=== PATIENT | male | born 1940 | race Caucasian/White ===

== ENCOUNTER 2021-02-11 06:58 | Day surgery (SDC) | payer MEDICARE, OTHER ==
[~2021-02-11 06:58] MED LIST: Lactated Ringers 1,000 ML IV SCH; Lidocaine 1%/Sod Bicarbonate in NS 8.4% 1 ML Syringe IDERM PRN; Sodium Chloride 0.9% 10 ML Syringe FLUSH PRN
--- NOTE | 2021-02-11 07:35 | PCM.PREANE ---
Preanesthetic Assessment - Procedure Proposed Procedure: EGD - Anesthesia/Transfusion/Family Hx Anesthesia History: Prior Anesthesia Without Reaction - Review of Systems General: No Symptoms Pulmonary: No Symptoms Cardiovascular: No Symptoms Gastrointestinal: No Symptoms Neurological: No Symptoms Other: Reports: None - Physical Assessment NPO Status Date: 02/10/21 NPO Status Time: 20:00 Vital Signs: 145/82 58 16 99% RA 97.6 F ASA Class: 2 Mental Status: Alert & Oriented x3 Dentition: Reports: Normal Dentition (age appropriate, ), [place](s[place] Thyro-Mental Finger Breadths: 3 Mouth Opening Finger Breadths: 3 ROM/Head Extension: Full Lungs: Clear to Auscultation, Normal Respiratory Effort Cardiovascular: Regular Rate, Regular Rhythm - Allergies Allergies/Adverse Reactions: Allergies Allergy/AdvReac Type Severity Reaction Status Date / Time codeine Allergy Hallucinati Verified 02/10/21 16:45 ons - Acknowledgements Anesthesia Type Planned: MAC Pt an Appropriate Candidate for the Planned Anesthesia: Yes Alternatives and Risks of Anesthesia Discussed w Pt/Guardian: Yes Pt/Guardian Understands and Agrees with Anesthesia Plan: Yes PreAnesthesia Questionnaire HEENT History: Reports: Impaired Vision, Other (See Below) Other HEENT History: wears glasses Cardiovascular History: Reports: Hypertension Respiratory History: Reports: None Gastrointestinal History: Reports: Other (See Below) Other Gastrointestinal History: trouble swallowing Genitourinary History: Reports: UTI, Recurrent [employer] History: Reports: None Musculoskeletal History: Reports: None Neurological History: Reports: None Psychiatric History: Reports: None Endocrine/Metabolic History: Reports: Vitamin D Deficiency Hematologic History: Reports: None Immunologic History: Reports: None Oncologic (Cancer) History: Reports: Prostate Dermatologic History: Reports: Other (See Below) Other Dermatologic History: actinic keratosis, changing skin lesion - Past Surgical History Head Surgeries/Procedures: Reports: None HEENT Surgical History: Reports: Laser Surgery Cardiovascular Surgical History: Reports: None Respiratory Surgical History: Reports: None GI Surgical History: Reports: Colonoscopy, Other (See Below) Other GI Surgeries/Procedures: partial colectomy Female Surgical History: Reports: None Male Surgical History: Reports: None Endocrine Surgical History: Reports: None Neurological Surgical History: Reports: None Musculoskeletal Surgical History: Reports: None Oncologic Surgical History: Reports: None Dermatological Surgical History: Reports: None - SUBSTANCE USE Tobacco Use Status *Q: Former Tobacco User Recreational Drug Use History: No - HOME MEDS Home Medications: Home Meds Aspirin 81 mg PO DAILY 02/10/21 [History] Cholecalciferol (Vitamin D3) [Vitamin D3] 1,000 unit PO DAILY 02/10/21 [History] Doxazosin Mesylate [Cardura] 8 mg PO DAILY 02/10/21 [History] Glucosamine Sulfate Dipot Chlr [Glucosamine] 1,000 mg PO DAILY 02/10/21 [History] Lactobacillus Combo No.10 [Probiotic] 1 cap PO DAILY 02/10/21 [History] lisinopriL [Lisinopril] 20 mg PO DAILY 02/10/21 [History] - CURRENT (IN HOUSE) MEDS Current Meds: Current Medications Lactated Ringer's (Ringers, Lactated) 1,000 mls @ 125 mls/hr IV ASDIRECTED CHRISTIANO Stop: 02/11/21 23:00 Lidocaine/Sodium Bicarbonate (Lidocaine 1%/Sod Bicarbonate In Ns 8.4% 1 Ml Syringe) 0.25 ml IDERM ONETIME PRN PRN Reason: Prior to IV Start Stop: 02/11/21 18:00 Sodium Chloride (Sodium Chloride 0.9% 10 Ml Syringe) 10 ml FLUSH ASDIRECTED PRN PRN Reason: Keep Vein Open Stop: 02/11/21 18:00
[2021-02-11] MEDS ORDERED: Propofol 200 MG/20 ML SDV ONE (07:44)
[2021-02-11] MEDS ORDERED: Lidocaine 1% 4 ML ONE (07:44)
--- NOTE | 2021-02-11 08:23 | PCM48HPAN ---
Post Anesthesia Note - EVALUATION WITHIN 48HRS OF ANESTHETIC Vital Signs in Normal Range: Yes Patient Participated in Evaluation: Yes Respiratory Function Stable: Yes Airway Patent: Yes Cardiovascular Function Stable: Yes Hydration Status Stable: Yes Pain Control Satisfactory: Yes Nausea and Vomiting Control Satisfactory: Yes Mental Status Recovered: Yes Vital Signs: Last Vital Signs Temp 98.3 F 02/11/21 08:14 Pulse 53 L 02/11/21 08:14 Resp 16 02/11/21 08:14 BP 105/63 02/11/21 08:14 Pulse Ox 98 02/11/21 08:14
--- NOTE | 2021-02-11 08:58 | PCM.PRNOTE ---
- Free Text/Narrative Note: Date: 02/11/2021 Procedure: diagnostic esophagogastroduodenoscopy Indication: chronic dysphagia Endoscopist: Celestine Cesar MD Findings: hiatal hernia with gross evidence of distal esophagitis Detailed Report: The patient was taken to the endoscopy suite and placed in left lateral decubitus position. Timeout was performed and monitored anesthesia care was initiated. A bite-block was placed. The endoscope was inserted into the mouth and advanced to the duodenum. Duodenal mucosa appeared normal. The scope was withdrawn into the stomach. Gastric antrum appeared fairly normal, there appeared to be a small well-circumscribed subtle submucosal mass in the antrum. Biopsies of the mucosa overlying this was were obtained with cold forceps. There was no evidence of ulceration or gastritis. On retroflexion, a hiatal hernia was appreciated. The scope was then withdrawn into the herniated stoma ch. There appeared to be some inflammatory change at the level of the GE junction with changes consistent with gross metaplasia. Although there was no stricture, there did appear to be kinking at the level of the GE junction. Biopsies were obtained at the GE junction and distal esophagus. Air was suctioned from the stomach prior to withdrawal of the scope. The remainder of the esophagus appeared normal. The patient tolerated the procedure well.
== END 2021-02-11 09:00 | disposition home or self-care (01) ==
LOC: JD.SDS 06:58
PROVIDERS: ATTEND Surgery
DX: K22.70 Barrett's esophagus without dysplasia (principal); K20.90 Esophagitis, unspecified without bleeding; K31.89 Other diseases of stomach and duodenum; K22.8 Other specified diseases of esophagus; K44.9 Diaphragmatic hernia without obstruction or gangrene; I78.1 Nevus, non-neoplastic; I10 Essential (primary) hypertension; E55.9 Vitamin D deficiency, unspecified; Z88.6 Allergy status to analgesic agent; Z87.891 Personal history of nicotine dependence; Z79.82 Long term (current) use of aspirin; Z79.899 Other long term (current) drug therapy
CPT/HCPCS: 43239; 88305; J2704; J7120; 00731; 99100

== ENCOUNTER 2023-04-20 08:15 | Day surgery (SDC) | payer MEDICARE, OTHER ==
[~2023-04-20 08:15] MED LIST changes: -Lidocaine 1%/Sod Bicarbonate in NS 8.4% 1 ML Syringe IDERM PRN; +Sodium Chloride 0.9% 10 ML Syringe FLUSH SCH
[2023-04-20] MEDS ORDERED: Midazolam 1 MG/ML 2 ML SDV ONE (09:04)
[2023-04-20] MEDS ORDERED: Ketamine 200 MG/20 ML MDV ONE (09:04)
[2023-04-20] MEDS ORDERED: Propofol 200 MG/20 ML SDV ONE ×2 (09:05→09:31)
[2023-04-20] MEDS ORDERED: Lidocaine 1% 2 ML ONE (09:05)
[2023-04-20] MEDS ORDERED: Ondansetron 4 MG/2 ML SDV IVPUSH PRN (09:25)
== END 2023-04-20 11:17 | disposition home or self-care (01) ==
LOC: JD.SDS 08:15
PROVIDERS: ATTEND Specialist
DX: K22.70 Barrett's esophagus without dysplasia (principal); K29.50 Unspecified chronic gastritis without bleeding; K44.9 Diaphragmatic hernia without obstruction or gangrene; K22.2 Esophageal obstruction; I10 Essential (primary) hypertension; E55.9 Vitamin D deficiency, unspecified; Z79.82 Long term (current) use of aspirin; Z88.5 Allergy status to narcotic agent; Z79.899 Other long term (current) drug therapy
CPT/HCPCS: 43239; 88305; 88341; 88342; J2250; J2704; J7120; 00731; 99100; J3490